=== PATIENT | female | born 1985 ===

== ENCOUNTER 2020-03-26 06:22 | Outpatient (CLI) | payer SELFPAY ==
[2020-03-26 08:35] LABS: HEMOGLOBIN A1C 5.5 % (4.5-6.2)
[2020-03-26 08:50] LABS: CHOL/HDL RATIO 1.58 (0.00-4.99)
== END 2020-03-26 23:59 | disposition home or self-care (01) ==
LOC: HW HEART 06:22
DX: Z13.6 Encounter for screening for cardiovascular disorders (principal)
CPT/HCPCS: 36415